=== PATIENT | female | born 1990 | race Caucasian/White ===

== ENCOUNTER 2017-01-19 08:50 | Inpatient (IN) | payer BC ==
[2017-01-19] MEDS ORDERED: OXYTOCIN 20 UNIT in LR 1,000 ML IV PRN (10:22)
[2017-01-19] MEDS ORDERED: EPSOM SALT 454 GM TP PRN (10:22)
[2017-01-19] MEDS ORDERED: LR 1,000 ML IV PRN (10:22)
[2017-01-19] MEDS ORDERED: TERBUTALINE SULFATE 1 MG/ML VIAL IV PRN (10:22)
[2017-01-19] MEDS ORDERED: OLIVE OIL 118 ML BTL MISC PRN (10:22)
[2017-01-19] MEDS ORDERED: OXYTOCIN 30 UNIT in LR 500 ML IV SCH ×2 (10:30→18:45)
[2017-01-19 11:39] LABS: % IMMATURE GRANULYOCYTES 0.7 % (0.0-1.1); ABSOLUTE IMMATURE GRANULOCYTES 0.06 10^3/uL (0.00-0.10); ADD DIFF? NO; ADD MORPH? NO; ADD SCAN? NO; ATYPICAL LYMPHOCYTE FLAG 0 (0-99); FRAGMENT RBC FLAG 0 (0-99); HEMATOCRIT 35.8 % (38.0-47.0); HEMOGLOBIN 12.7 g/dL (12.6-16.3); LEFT SHIFT FLG 0 (0-99); LIPEMIA HEMOLYSIS FLAG 90 (0-99); MEAN CELL HEMOGLOBIN 31.8 pg (27.9-34.1); MEAN CELL HEMOGLOBIN CONCENTR. 35.5 g/dL (32.4-36.7); MEAN CELL VOLUME 89.7 fL (81.5-99.8); MEAN PLATELET VOLUME 10.3 fL (8.7-11.7); PLATELET CLUMPS FLAG 0 (0-99); PLATELET COUNT 210 10^3/uL (150-400); RED BLOOD CELL COUNT 3.99 10^6/uL (4.18-5.33)
[2017-01-19] MEDS ORDERED: OLIVE OIL 118 ML BTL ONE (12:37)
[2017-01-19] MEDS ORDERED: LIDOCAINE 1% 300 MG/30 ML SDV ONE (12:37)
[2017-01-19] MEDS ORDERED: TERBUTALINE SULFATE 1 MG/ML VIAL ONE (12:38)
[2017-01-19] MEDS ORDERED: MISOPROSTOL 200 MCG TAB ONE (12:38)
[2017-01-19] MEDS ORDERED: AMMONIA AROMATIC 1 EACH AMP IH ONE (12:38)
[2017-01-19] MEDS ORDERED: fentaNYL 2MCG/ML/BUP 0.1% RTU 100 ML BAG EP ONE (15:50)
[2017-01-19] MEDS ORDERED: PHENYLEPHRINE HCL 100 MCG/ML SYR ONE (15:51)
[2017-01-19] MEDS ORDERED: BUPIVACAINE 0.25% 30 ML SDV ONE (15:51)
[2017-01-19] MEDS ORDERED: fentaNYL 100 MCG/2 ML INJ ONE (15:53)
--- NOTE | 2017-01-19 16:30 | PDGENHP ---
History and Physical - Chief Complaint loss of fluid - History of Present Illness 26-year-old white female @ 39.4 (EDC 01/22/17 by LMP c/w 10 wk scan) weeks gestation presented earlier this morning with complaints of loss of fluid. She denied contractions or vaginal bleeding at that time. She reports good movement. has been complicated by Rh- and hypothyroidism ( diagnosed in current ). Patient initially presented with a good history for ruptured membranes, but no gross fluid seen on initial RN pelvic exam. Cervix was 2 cm dilated, but no gross pooling. Amnisure was sent and was positive. Low-lying placenta was diagnosed on early scans, but subsequently resolved. Patient's first delivery was a vaginal deliver in October of 2014, with no major complications. O- / Antibody screen negative / RPR NR / Rubella Immune / HBsAg Neg / HIV Neg / Pap WNL / HPV Neg / GC Neg/Neg / AFP WNL / cfDNA Neg / 1hr GTT 109 / GBS Neg. History Information - Allergies/Home Medication List Allergies/Adverse Reactions: No Known Allergies Allergy (Unverified 01/19/17 09:06) Home Medications: Bifera 01/19/17 [Last Taken 01/18/17 09:00 2 tabs qhs] Levothyroxine 50 mcg 01/19/17 [Last Taken 01/19/17 06:00] 01/19/17 [Last Taken 01/18/17 09:00] I have personally reviewed and updated: family history, medical history, social history, surgical history - Past Medical History no pertinent PMH - Surgical History Reports: no pertinent surgical hx - Family History Positive for: cancer, diabetes type II - Social History Smoking Status: Never smoked Alcohol Use: None Drug Use: None Review of Systems Review of Systems: ROS: 10pt was reviewed & negative except for what was stated in HPI & below Physical Exam Physical Exam: Constitutional: no apparent distress Eyes: PERRL Ears, Nose, Mouth, Throat: moist mucous membranes Cardiovascular: regular rate and rhythym Respiratory: no respiratory distress Gastrointestinal: normoactive bowel sounds, soft, non-tender abdomen Genitourinary: other (RN performed initial intake pelvic exam; no gross pooling ; CE:20/50/-3) Skin: warm, normal color Musculoskeletal: full muscle strength Neurologic: AAOx3, sensation intact bilaterally Psychiatric: interacting appropriately Lab Data & Imaging Review 01/19/17 11:22 WBC 8.63 10^3/uL (3.80-9.50) 01/19/17 11:22 RBC 3.99 10^6/uL (4.18-5.33) L 01/19/17 11:22 Hgb 12.7 g/dL (12.6-16.3) 01/19/17 11:22 Hct 35.8 % (38.0-47.0) L 01/19/17 11:22 MCV 89.7 fL (81.5-99.8) 01/19/17 11:22 MCH 31.8 pg (27.9-34.1) 01/19/17 11:22 MCHC 35.5 g/dL (32.4-36.7) 01/19/17 11:22 RDW 13.0 % (11.5-15.2) 01/19/17 11:22 Plt Count 210 10^3/uL (150-400) 01/19/17 11:22 MPV 10.3 fL (8.7-11.7) 01/19/17 11:22 Neut % (Auto) 74.7 % (39.3-74.2) H 01/19/17 11:22 Lymph % (Auto) 14.7 % (15.0-45.0) L 01/19/17 11:22 Cooper % (Auto) 8.8 % (4.5-13.0) 01/19/17 11:22 Eos % (Auto) 0.6 % (0.6-7.6) 01/19/17 11:22 Baso % (Auto) 0.5 % (0.3-1.7) 01/19/17 11:22 Nucleat RBC Rel Count 0.0 % (0.0-0.2) 01/19/17 11:22 Absolute Neuts (auto) 6.45 10^3/uL (1.70-6.50) 01/19/17 11:22 Absolute Lymphs (auto) 1.27 10^3/uL (1.00-3.00) 01/19/17 11:22 Absolute Monos (auto) 0.76 10^3/uL (0.30-0.80) 01/19/17 11:22 Absolute Eos (auto) 0.05 10^3/uL (0.03-0.40) 01/19/17 11:22 Absolute Basos (auto) 0.04 10^3/uL (0.02-0.10) 01/19/17 11:22 Absolute Nucleated RBC 0.00 10^3/uL (0-0.01) 01/19/17 11:22 Immature Gran % 0.7 % (0.0-1.1) 01/19/17 11:22 Immature Gran # 0.06 10^3/uL (0.00-0.10) 01/19/17 11:22 Membrane Rupture POSITIVE (NEGATIVE) H 01/19/17 09:20 Patient ABO/Rh O NEGATIVE 01/19/17 11:22 Antibody Screen POSITIVE 01/19/17 11:22 Antibody Identification SIG ANTIBODIES RULED OUT 01/19/17 11:22 Imaging Review: FHR: 140, Cat I [employer]: irregular pattern at time of admission Assessment & Plan Assessment: 26-year-old @ 39.4 weeks with PROM Plan: Admit Augment labor with IV Pitocin Monitor for signs/symptoms of infection with prolonged rupture GBS Negative Offer anesthesia consult as needed
--- NOTE | 2017-01-19 16:39 | PREANESOB ---
Obstetric Pre-Anesthesia Info - General Info Proposed Procedure: Labor and delivery with pitocin. : 2 Para: 1 SHARDA: 01/22/17 Gestational Age: 39 week(s) and 4 day(s) - Info Status: Full Term Monitors: External FHR Baseline (bpm): 135 FHR Pattern: Reassuring - Labor Status Cervical Dilation per last OB SVE: 2 (SROM.) Pitocin: In Use Indications for Labor Analgesia: Induction of Labor, Pain Control Labor Epidural: Proposed Anesthesia ROS: Prior labor epidural and prior oral surgery. Allergies/Adverse Reactions: Allergy/AdvReac Type Severity Reaction Status Date / Time No Known Allergies Allergy Unverified 01/19/17 09:06 Home Medications: Medication Instructions Recorded Bifera 01/19/17 Levothyroxine 50 mcg 01/19/17 01/19/17 Visit Medications: Generic Name Dose Route Start Last Admin Trade Name Freq PRN Reason Stop Dose Admin Lactated Ringer's 1,000 mls @ 0 mls/hr 01/19/17 10:22 01/19/17 12:16 Lr IV 07/18/17 10:21 1,000 mls PRN PRN Administration SEE PROTOCOL CONDITIONS Protocol Per Protocol Oxytocin 20 unit/ Lactated 1,002 mls @ 150 mls/hr 01/19/17 10:22 Ringer's IV PRN PRN Post- bleeding Oxytocin 30 unit/ Lactated 503 mls @ 0 mls/hr 01/19/17 10:30 01/19/17 12:16 Ringer's IV 07/18/17 10:29 503 mls CONT VLADIMIR Administration Per Protocol Ibuprofen 600 mg 01/19/17 10:22 Motrin PO 07/18/17 10:21 Q6HRS PRN post , inflammation Magnesium Sulfate 454 gm 01/19/17 10:22 Epsom Salt TP 07/18/17 10:21 Q1H PRN perineal discomfort [place] Oil 118 ml 01/19/17 10:22 Sweet Oil MISC 07/18/17 10:21 ONCE PRN perineal massage Terbutaline Sulfate 0.25 mg 01/19/17 10:22 Brethine IV 07/18/17 10:21 ONCE PRN Tachysystole Discontinued Medications Generic Name Dose Route Start Last Admin Trade Name Freq PRN Reason Stop Dose Admin Ammonia (Aromatic Spirit) Confirm 01/19/17 12:38 Ammonia Aromatic Administered 01/19/17 12:39 Dose 1 each IH .STK-MED ONE Bupivacaine HCl Confirm 01/19/17 15:51 Sensorcaine 0.25% Sdv Administered 01/19/17 15:52 Dose 30 ml .ROUTE .STK-MED ONE Fentanyl Confirm 01/19/17 15:53 Sublimaze Administered 01/19/17 15:54 Dose 100 mcg .ROUTE .STK-MED ONE Fentanyl/Bupivacaine HCl Confirm 01/19/17 15:50 Fentanyl/Bupivacaine/Ns 2 Mcg/Ml 0.1% (Premix Administered 01/19/17 15:51 Dose 100 ml EP .STK-MED ONE Lidocaine HCl Confirm 01/19/17 12:37 Lidocaine Hcl 1% Administered 01/19/17 12:38 Dose 300 mg .ROUTE .STK-MED ONE Misoprostol Confirm 01/19/17 12:38 Cytotec Administered 01/19/17 12:39 Dose 1,000 mcg .ROUTE .STK-MED ONE [place] Oil Confirm 01/19/17 12:37 Sweet Oil Administered 01/19/17 12:38 Dose 118 ml .ROUTE .STK-MED ONE Phenylephrine HCl Confirm 01/19/17 15:51 Neosynephrine Administered 01/19/17 15:52 Dose 1,000 mcg .ROUTE .STK-MED ONE Terbutaline Sulfate Confirm 01/19/17 12:38 Brethine Administered 01/19/17 12:39 Dose 1 mg .ROUTE .STK-MED ONE - Anesthesia History Response to Local Anesthetics: Normal Anesthesia & Operative History: No Prior Problems Family Anesthesia History: Negative - Social History Substance Use/Abuse: Denies - Vital Signs Blood Pressure: 132/84 Heart Rate: 74 Height/Weight (Nursing): Height 172.72 cm Weight 86.183 kg - Focused Exam Neck exam: FROM Mallampati Score: Class 1 Mouth exam: normal dental/mouth exam Pulmonary: no respiratory distress Cardiovascular: regular rate and rhythym Labs: 01/19/17 11:22 Patient ABO/Rh O NEGATIVE 01/19/17 11:22 - Plan Anesthetic Plan: CSE Consent Signed and on Chart: Yes Patient/Guardian Understands and Agrees to Plan: Yes Urgent/Emergent Case: Kendell brooks completed preop but documented later for safe timely pt care
[2017-01-19] MEDS ORDERED: PHENYLEPHRINE HCL 100 MCG/ML SYR IVP PRN (16:40)
[2017-01-19] MEDS ORDERED: ONDANSETRON 4 MG/2 ML VIAL IVP PRN (16:40)
--- NOTE | 2017-01-19 16:40 | POSTANESTH ---
Post Anesthetic Evaluation Cardiovascular Status: Normal, Stable, Similar to Pre-Op Cond Respiratory Status: Normal, Stable, Similar to Pre-op Cond. Level of Consciousness/Mental Status: Can Participate in Eval, Alert and Oriented Pain Control: Adequate, Prn Tx Ordered Nausea/Vomiting Control: Adequate, Prn Tx Ordered Complications Possibly Related to Anesthesia: None Noted
--- NOTE | 2017-01-19 16:48 | OBPROG ---
Labor Progress Note Assessment/Plan: Assessment: 26 yo WF @ 39.4 with PROM Plan: s/p Epidural CE 3-4 cm Continue Pitocin Augmentation Monitor closely for development of 2nd stage 01/19/17 16:45 Subjective/Intrapartum Course: 01/19/17 16:48 Comfortable s/p epidural placement Objective: 01/19/17 11:22 Patient ABO/Rh O NEGATIVE 01/19/17 11:22 Temp Pulse Resp BP Pulse Ox 74 132/84 H 01/19/17 16:39 01/19/17 16:39 - SVE Dilation (cm): 4 Effacement (%): 80 Station: -2 Membranes: SROM Amniotic Fluid Color: Clear - FHR Assessment García FHR (bpm): 110 FHR Pattern Variability: Moderate FHR Category: 1 Oxytocin Orders Assessment - Pre-Induction/Augmentation Assessment Gestational Age: 39 week(s) and 4 day(s) ICD10 Worksheet Patient Problems: Problems Problem Status Onset PROM with onset of labor within 24 hours of rupture Acute - ICD10 Problem Qualifiers (1) PROM with onset of labor within 24 hours of rupture
[2017-01-19] MEDS ORDERED: fentaNYL 2MCG/ML/BUP 0.1% RTU 100 ML EP SCH (17:00)
[2017-01-19] MEDS ORDERED: LR 500 ML IV SCH (17:00)
[2017-01-19] MEDS ORDERED: SIMETHICONE 80 MG TAB CHEW PO PRN (18:36)
[2017-01-19] MEDS ORDERED: ACETAMINOPHEN 325 MG TAB PO PRN (18:36)
[2017-01-19] MEDS ORDERED: HYDROCORTISONE 0.5% CREAM TP PRN (18:36)
[2017-01-19] MEDS: IBUPROFEN 600 MG TAB PO PRN (18:41)
--- NOTE | 2017-01-19 18:42 | OBDEL ---
Info Type: Vaginal Presentation at Delivery: Vertex L&D Analgesia/Anesthesia Type: Epidural GBS+: No Intrapartum Medications: Generic Name Dose Route Start Last Admin Trade Name Faheemq PRN Reason Stop Dose Admin Lactated Ringer's 1,000 mls @ 0 mls/hr 01/19/17 10:22 01/19/17 12:16 Lr IV 07/18/17 10:21 1,000 mls PRN PRN Administration SEE PROTOCOL CONDITIONS Protocol Per Protocol Oxytocin 30 unit/ Lactated 503 mls @ 0 mls/hr 01/19/17 10:30 01/19/17 12:16 Ringer's IV 07/18/17 10:29 503 mls CONT VLADIMIR Administration Per Protocol - Hospital Course Intrapartum: 01/19/17 16:48 Comfortable s/p epidural placement Indications for Delivery: SROM Vaginal Delivery - Delivery Provider Delivery Physician/CNM: Papito Schmitt - Labor and Delivery Onset of Contractions Type: Augmented Rupture of Membranes Type: Spontaneous Amniotic Fluid Color: Clear Laceration: 1st Degree Repair: 3-0, Vicryl Vaginal Sponge Count Correct: Yes Vaginal Needle Count Correct: Yes Vaginal Sweep Performed: Yes EBL: 200 Delivery Events: None Delivery Comment: of VMI. Apgars 9 @ 1 minute, 9 @ 5 minutes. Head delivered NOREEN with 2 pushes. Anterior and posterior shoulder delivered without difficulty or dystocia. Body delivery was spontaneous thereafter and was placed on mom' s abdomen. Cord was clamped one minute following delivery of . IV Pitocin 30U given while awaiting placental delivery. Placenta delivered intact and complete within 5 minutes of infant. Bimanual massage of fundus revealed a firm and involuting uterus. Systematic examination of cervix, vaginal mucosa and perineum revealed a small midline 1st degree perineal tear. This was repaired with 3-0 Vicryl. EBL was 200 mL. Excellent hemostasis at end of delivery. ICD10 Worksheet Patient Problems: Problems Problem Status Onset PROM with onset of labor within 24 hours of rupture Acute Vaginal delivery Acute - ICD10 Problem Qualifiers (1) PROM with onset of labor within 24 hours of rupture Qualifiers: PROM gestational age: full term Qualified Code(s): O42.02 - Full-term premature rupture of membranes, onset of labor within 24 hours of rupture (2) Vaginal delivery
[2017-01-19] MEDS: HYDROCODONE/APAP 5/325 TAB PO PRN (23:07)
[2017-01-20] MEDS: IBUPROFEN 600 MG TAB PO PRN ×4 (03:01→22:02)
[2017-01-20] MEDS: HYDROCODONE/APAP 5/325 TAB PO PRN ×3 (04:16→20:33)
[2017-01-20 04:23] VITALS: O2SAT 96
[2017-01-20] MEDS: LEVOTHYROXINE 50 MCG TAB PO SCH (06:55)
[2017-01-20] MEDS: DOCUSATE SODIUM 100 MG CAP PO PRN ×2 (08:23→20:34)
--- NOTE | 2017-01-20 10:52 | OBPP ---
Progress Note Assessment/Plan: Assessment: 1) s/p PPD #1 - pt is stable 2) Anemia - pt is asymptomatic 3) Rh negative - Rhogam eval Plan: Continue routine pp care Plan for d/c home in am 01/2101/20/17 10:49 Subjective/ Course: 01/20/17 10:50 Pt seen and examined. Doing well with no complaints. Minimal cramping. Mod lochia. She is OOB, lalo reg diet, voiding and passing flatus. BF without difficulty. Objective: 01/19/17 11:22 Patient ABO/Rh O NEGATIVE 01/19/17 20:03 Temp Pulse Resp BP Pulse Ox 36.1 C 67 16 117/74 96 01/20/17 04:00 01/20/17 04:00 01/20/17 04:00 01/20/17 04:00 01/20/17 04:00 Uterine Position/Fundal Height: Umbilicus -2 Uterine Tone: Firm Physical Exam - Physical Exam Respiratory: lungs clear, normal breath sounds Cardiac/Chest: regular rate, rhythm Abdomen: normal bowel sounds, non-tender, soft, flatus (+) Extremities: non-tender, normal inspection Skin: normal color, warm/dry Neuro/Psych: alert, normal mood/affect, oriented x 3
[2017-01-21] MEDS: IBUPROFEN 600 MG TAB PO PRN ×2 (03:44→09:55)
[2017-01-21] MEDS: HYDROCODONE/APAP 5/325 TAB PO PRN ×3 (03:44→12:31)
[2017-01-21] MEDS: LEVOTHYROXINE 50 MCG TAB PO SCH (05:17)
[2017-01-21] MEDS: DOCUSATE SODIUM 100 MG CAP PO PRN (08:07)
[2017-01-21 08:29] VITALS: BP 119/74; PULSE 70; RESP 18; TEMP 98.2
--- NOTE | 2017-01-21 11:59 | OBGCSDC ---
General Delivery Information - General Info : 2 Para: 2 Abortions: 0 Type: Vaginal L&D Analgesia/Anesthesia Type: Epidural Admission Date: 01/19/17 Labs: Patient ABO/Rh O NEGATIVE 01/19/17 20:03 Hct 35.8 % (38.0-47.0) L 01/19/17 11:22 - Hospital Course Intrapartum: 01/19/17 16:48 Comfortable s/p epidural placement : 01/20/17 10:50 Pt seen and examined. Doing well with no complaints. Minimal cramping. Mod lochia. She is OOB, lalo reg diet, voiding and passing flatus. BF without difficulty. 01/21/17 14:33 S) pt doing well, she denies any pain or heavy bleeding. She is without difficulty. she is voiding without difficulty. She is ambulating well. She desires d/c home at this time. O) VSS constitutional: WNWF, A&Ox3 Heart: RRR, no murmur Chest: CTA-B Abdomen: soft, nontender uterus: firm @U-2 perineum: healing well lochia: min rubra Extremities: WNL, trace edema, negative dio's sign A) [id number] s/p PPD#2 P) plan to d/c home at this time routine pp care cont danger S&S discussed RTO in 4/6weeks Vaginal - Delivery Provider Delivery Physician/CNM: Papito Schmitt - Diagnosis Labor: Augmented Rupture of Membranes Type: Spontaneous Amniotic Fluid Color: Clear Laceration: 1st Degree Repair: 3-0, Vicryl Delivery Events: None - Delivery EBL: 200 Data García Delivery Date: 01/19/17 Delivery Time: 18:23 SHARDA: 01/22/17 Gestational Age: 39 week(s) and 6 day(s) Sex of : Male [place] Weight (gm): 4106 kg Score (1 Min): 9 Score (5 Min): 9 Discharge Information - Discharge Information Prescriptions: Ibuprofen [Motrin (*)] 600 mg PO Q6HRS PRN #30 tab PRN Reason: post , inflammation Condition: Good
== END 2017-01-21 15:15 | disposition home or self-care (01) | DRG 775 ==
LOC: FLD 08:50 → OBSVTOIN 08:50 → FOB 21:02
PROVIDERS: ADMIT Obstetrics & Gynecology Gynecology; ATTEND Obstetrics & Gynecology Gynecology
DX: O42.02 Full-term premature rupture of membranes, onset of labor within 24 hours of rupture (principal); O70.0 First degree perineal laceration during delivery; Z3A.39 39 weeks gestation of pregnancy; Z37.0 Single live birth
CPT/HCPCS: J2370; J3010; J3105